=== PATIENT | female | born 1965 | race Caucasian/White ===

== ENCOUNTER 2017-09-19 13:56 | Emergency (ER) | payer BC ==
--- NOTE | 2017-09-19 14:37 | PHYS DOC ---
Past History Additional Past Medical Histor: right wrist fracture age 12, chronic pain Adult General Chief Complaint Chief Complaint: WRIST PAIN HPI HPI Patient is a 51 year old female who presents with onset prior to arrival right wrist pain pickup truck door pushed against it and she felt a pop no other injury. Denies any numbness tingling or weakness. Movement makes it worse. Moderate pain. Review of Systems Review of Systems Constitutional: Denies fever or chills [] Eyes: Denies change in visual acuity, redness, or eye pain [] HENT: Denies nasal congestion or sore throat [] Respiratory: Denies cough or shortness of breath [] Cardiovascular: No additional information not addressed in HPI [] GI: Denies abdominal pain, nausea, vomiting, bloody stools or diarrhea [] : Denies dysuria or hematuria [] Musculoskeletal: Denies back pain or joint pain [] Integument: Denies rash or skin lesions [] Neurologic: Denies headache, focal weakness or sensory changes [] Endocrine: Denies polyuria or polydipsia [] All other systems were reviewed and found to be within normal limits, except as documented in this note. Allergies Allergies Allergies Coded Allergies Type Severity Reaction Last Updated Verified No Known Drug Allergies 09/19/17 No Physical Exam Physical Exam Constitutional: Well developed, well nourished, no acute distress, non-toxic appearance. [] HENT: Normocephalic, atraumatic, bilateral external ears normal, oropharynx moist, no oral exudates, nose normal. [] Eyes: PERRLA, EOMI, conjunctiva normal, no discharge. [] Neck: Normal range of motion, no tenderness, supple, no stridor. [] Cardiovascular:Heart rate regular rhythm, no murmur [] Lungs & Thorax: Bilateral breath sounds clear to auscultation [] Abdomen: Bowel sounds normal, soft, no tenderness, no masses, no pulsatile masses. [] Skin: Warm, dry, no erythema, no rash. [] Back: No tenderness, no CVA tenderness. [] Extremities: Examination of right wrist and hand no obvious swelling bruising; negative snuffbox tenderness there is tenderness to the dorsum and volar aspect of the wrist in the middle; tendon functions intact with flexion and extension of the wrist and fingers. Pulses pulses in the wrist. No sensory deficits. No deformity seen Neurologic: Alert and oriented X 3, normal motor function, normal sensory function, no focal deficits noted. [] Psychologic: Affect normal, judgement normal, mood normal. [] EKG EKG [] Radiology/Procedures Radiology/Procedures Right wrist x-ray[] no acute fracture dislocation my review of images in interpretation. Course & Med Decision Making Course & Med Decision Making Pertinent Labs and Imaging studies reviewed. (See chart for details) X-rays negative plan to put in a Velcro cock-up splint and recommend supportive care and Tylenol or Motrin ibuprofen[] Dragon Disclaimer Dragon Disclaimer This electronic medical record was generated, in whole or in part, using a voice recognition dictation system. Departure Departure: Impression: Primary Impression: Right wrist sprain Disposition: 01 HOME, SELF-CARE Condition: STABLE Referrals: KRISTINA ARGUETA (PCP) Patient Instructions: Wrist Pain, [id number] Additional Instructions: Please take Tylenol or ibuprofen for pain and ice and rest with follow-up with her primary care physician in the next 4-5 days if not improving with rest. LUZMA LAZARO MD Sep 19, 2017 14:37
--- NOTE | 2017-09-19 14:58 | RAD ---
Right wrist, 3 views, 09/19/2017: History: Wrist pain after a fall No acute fracture or dislocation is identified. There is an old nonunited ulnar styloid fracture. There is minimal spurring at the first CMC joint. A small sclerotic focus in the scaphoid bone is compatible with a bone island. There is mild soft tissue swelling. IMPRESSION: No acute bony abnormality is detected.
[2017-09-19 15:05] VITALS: BP 128/71
[2017-09-19] MEDS ORDERED: ACETAMINOPHEN 500 MG TABLET PO ONE (15:15)
== END 2017-09-19 15:05 | disposition home or self-care (01) ==
LOC: ER 13:56
DX: S63.501A Unspecified sprain of right wrist, initial encounter (principal); G89.29 Other chronic pain; X58.XXXA Exposure to other specified factors, initial encounter; Y93.89 Activity, other specified; Y99.8 Other external cause status; Y92.89 Other specified places as the place of occurrence of the external cause
CPT/HCPCS: 29125; 73110; 99284-25

== ENCOUNTER 2020-08-04 20:13 | Emergency (ER) | payer BC ==
[~2020-08-04] VITALS: Ht 157.5 cm; Wt 56.0 kg
--- NOTE | 2020-08-04 20:17 | PHYS DOC ---
Past History Past Medical History: No Pertinent History Additional Past Medical Histor: right wrist fracture age 12, chronic pain Past Surgical History: Hysterectomy, Tonsillectomy, Other Alcohol Use: Occasionally Drug Use: None General Adult HPI: HPI: ". I was on a motorize hover board.. and fell.. " .. " mess up the Lt. wrist, hit my head.. and tail bone hard..." Patient is a 54 year old female who presents with above hx fall and complaints Lt wrist arm injury in FOOSH type mechanism. Does have obvious swelling of the left wrist. Distal cap refill is equal to right hand. Patient also complained of contusion of tailbone area. Patient has contusion to posterior scalp. No loss of consciousness with fall but states it did just on her. Patient is ambulatory. Patient normally healthy. No recent travel. No specific ill contacts. Review of Systems: Review of Systems: Constitutional: Denies fever or chills Eyes: Denies change in visual acuity HENT: Complains of head injury Respiratory: Denies cough or shortness of breath Cardiovascular: Denies chest pain or edema GI: Denies abdominal pain, nausea, vomiting, bloody stools or diarrhea : Denies dysuria Musculoskeletal: Complains of tailbone and left wrist injury Integument: Denies rash Neurologic: Denies headache, focal weakness or sensory changes Endocrine: Denies polyuria or polydipsia Lymphatic: Denies swollen glands Psychiatric: Denies depression or anxiety Heart Score: Risk Factors: Risk Factors: DM, Current or recent (<one month) smoker, HTN, HLP, family history of CAD, obesity. Risk Scores: Score 0 - 3: 2.5% MACE over next 6 weeks - Discharge Home Score 4 - 6: 20.3% MACE over next 6 weeks - Admit for Clinical Observation Score 7 - 10: 72.7% MACE over next 6 weeks - Early Invasive Strategies Family History: Family History: Noncontributory to presentation Current Medications: Current Meds: See nursing for home meds Allergies: Allergies: Allergies Coded Allergies Type Severity Reaction Last Updated Verified No Known Drug Allergies 09/19/17 No Physical Exam: PE: Constitutional: Moderate acute distress, non-toxic appearance. [] HENT: Normocephalic, contusion to posterior scalp, bilateral external ears normal, oropharynx moist, no oral exudates, nose normal. [] Eyes: PERRLA, EOMI, conjunctiva normal, no discharge. [] Neck: Normal range of motion, mild upper neck paracervical tenderness, supple, no stridor. [] Cardiovascular:Heart rate regular rhythm, no murmur [] Lungs & Thorax: Bilateral breath sounds equal at the apex on auscultation [] Abdomen: Bowel sounds normal, soft, no tenderness, no masses, no pulsatile masses. Complains of contusion of the tailbone, old surgery scars Skin: Warm, dry, no erythema, no rash. [] Back: No tenderness, no CVA tenderness. [] Extremities: Complains of left wrist tenderness and edema.. No other injury, no cyanosis, no clubbing, ROM intact, no edema. [] Neurologic: Alert and oriented X 3, range of motion distally in fingers, limited movement of left wrist due to obvious fracture, no focal deficits noted. [] Psychologic: Affect anxious, judgement normal, mood normal. [] EKG: EKG: [] Radiology/Procedures: Radiology/Procedures: [place] [id number] IMAGING REPORT Signed PATIENT: VICKY BARBOZA ACCOUNT: [id number] : 1965 LOCATION: ER AGE: 54 SEX: F EXAM STATUS: DEP ER ORD. PHYSICIAN: SUNNY UP MD REASON: fall off [employer] PROCEDURE: PELVIS Pelvis single view: Reason for examination: Fell off motorized surfboard. Postop changes seen in the lower lumbar spine and sacrum. No acute fracture is seen in the pelvis or proximal femur. No acute abnormality seen in the sacrum or at the sacroiliac joints. Hip joints are symmetric. IMPRESSION: No acute bony abnormality in the pelvis. Left wrist 3 views: There is a comminuted fracture of the distal radius with intra-articular extension and dorsal displacement. No abnormality seen at the distal ulna. Carpal bones are intact. IMPRESSION: Comminuted fracture of the distal radius with dorsal displacement and intra-articular extension Electronically signed by: Clare Ramsey MD (08/05/2020 1:41 AM) [facility] DICTATED AND SIGNED BY: CLARE RAMSEY MD DATE: 08/05/20 0141 CC: SUNNY UP MD; KRISTINA ARGUETA ~ [][place] [id number] IMAGING REPORT Signed PATIENT: VICKY BARBOZA ACCOUNT: [id number] : 1965 LOCATION: ER AGE: 54 SEX: F EXAM STATUS: REG ER ORD. PHYSICIAN: SUNNY UP MD REASON: fall off moterized surf board PROCEDURE: CT HEAD AND CERVICAL SPINE WO EXAM: CT head and cervical spine without contrast INDICATION: Fell off motorized surfboard COMPARISON: None TECHNIQUE: Axial CT imaging through the head and cervical spine without intravenous contrast. Sagittal and coronal reformats were obtained. One or more of the following individualized dose reduction techniques were utilized for this examination: 1. Automated exposure control 2. Adjustment of the mA and/or kV according to patient size 3. Use of iterative reconstruction technique. FINDINGS: CT head: The ventricles and sulci are within normal limits. Neewll-white matter differentiation is maintained. There is no intracranial hemorrhage, acute infarct, or mass lesion. Basal cisterns are clear. The skull and scalp are intact. The visualized paranasal sinuses and mastoid air cells are clear. The visualized globes and orbits are intact. CT cervical spine: There is no acute fracture. There is 2 mm anterolisthesis of C2 on C3 and C7 on T1. 1 mm anterolisthesis of T1 on T2. There is slight reversal of lordosis. Moderate disc space narrowing at C6-C7. Mild disc space narrowing at the remaining levels. There is uncovertebral joint proliferation at C5-C6 and C6-C7 resulting in mild foraminal narrowing. Mild multilevel facet arthrosis. No canal narrowing. Prevertebral soft tissues is normal. Mild pleural parenchymal scarring in the lung apices. IMPRESSION: 1. No acute intracranial abnormality. 2. No acute osseous abnormality of the cervical spine. 3. Multilevel degenerative disc disease. Electronically signed by: Albert Solares MD (08/05/2020 12:09 AM) [id number] DICTATED AND SIGNED BY: ALBERT SOLARES MD DATE: 08/05/20 0009 CC: SUNNY UP MD; KRISTINA ARGUETA ~ Course & Med Decision Making: Course & Med Decision Making Pertinent Labs and Imaging studies reviewed. (See chart for details) Wear splint. Ice. Elevation. Rest. Tylenol and ibuprofen for pain. For marked pain may take Vicoprofen. Follow-up with primary care. If any neuro changes or concerns return immediately. Distal neurovascular intact after appli cation of splint. Call Orthro. in Am for follow apt. [phone] Impression: 1. Fall off Hover Board 2. Tail bone contusion 3. Head Injury 4. Lt wrist Comminuted Fx [] Dragon Disclaimer: Dragon Disclaimer: This electronic medical record was generated, in whole or in part, using a voice recognition dictation system. Departure Departure: Disposition: 01 HOME/RESIDENCE PRIOR TO ADM Condition: STABLE Referrals: KRISTINA ARGUETA (PCP) Dragon Disclaimer This chart was dictated in whole or in part using Voice Recognition software in a busy, high-work load, and often noisy Emergency Department environment. It may contain unintended and wholly unrecognized errors or omissions. Dragon Disclaimer This chart was dictated in whole or in part using Voice Recognition software in a busy, high-work load, and often noisy Emergency Department environment. It may contain unintended and wholly unrecognized errors or omissions. SUNNY UP MD Aug 04, 2020 20:17
[2020-08-04] MEDS ORDERED: KETOROLAC 60 MG/2 ML VIAL. IM ONE (21:00)
--- NOTE | 2020-08-05 00:13 | RAD ---
EXAM: CT head and cervical spine without contrast INDICATION: Fell off motorized surfboard COMPARISON: None TECHNIQUE: Axial CT imaging through the head and cervical spine without intravenous contrast. Sagittal and coronal reformats were obtained. One or more of the following individualized dose reduction techniques were utilized for this examination: 1. Automated exposure control 2. Adjustment of the mA and/or kV according to patient size 3. Use of iterative reconstruction technique. FINDINGS: CT head: The ventricles and sulci are within normal limits. Newell-white matter differentiation is maintained. There is no intracranial hemorrhage, acute infarct, or mass lesion. Basal cisterns are clear. The skull and scalp are intact. The visualized paranasal sinuses and mastoid air cells are clear. The visualized globes and orbits are intact. CT cervical spine: There is no acute fracture. There is 2 mm anterolisthesis of C2 on C3 and C7 on T1. 1 mm anterolisthesis of T1 on T2. There is slight reversal of lordosis. Moderate disc space narrowing at C6-C7. Mild disc space narrowing at the remaining levels. There is uncovertebral joint proliferation at C5-C6 and C6-C7 resulting in mild foraminal narrowing. Mild multilevel facet arthrosis. No canal narrowing. Prevertebral soft tissues is normal. Mild pleural parenchymal scarring in the lung apices. IMPRESSION: 1. No acute intracranial abnormality. 2. No acute osseous abnormality of the cervical spine. 3. Multilevel degenerative disc disease. Electronically signed by: Noni Solares MD (08/05/2020 12:09 AM) [id number]
[2020-08-05 01:30] VITALS: BP 179/99
--- NOTE | 2020-08-05 01:44 | RAD ---
Pelvis single view: Reason for examination: Fell off motorized surfboard. Postop changes seen in the lower lumbar spine and sacrum. No acute fracture is seen in the pelvis or proximal femur. No acute abnormality seen in the sacrum or at the sacroiliac joints. Hip joints are symmetric. IMPRESSION: No acute bony abnormality in the pelvis. Left wrist 3 views: There is a comminuted fracture of the distal radius with intra-articular extension and dorsal displacement. No abnormality seen at the distal ulna. Carpal bones are intact. IMPRESSION: Comminuted fracture of the distal radius with dorsal displacement and intra-articular extension Electronically signed by: Clare Woodward MD (08/05/2020 1:41 AM) [place]
== END 2020-08-05 01:30 | disposition home or self-care (01) ==
LOC: ER 20:13
DX: S52.502A Unspecified fracture of the lower end of left radius, initial encounter for closed fracture (principal); S30.0XXA Contusion of lower back and pelvis, initial encounter; S00.03XA Contusion of scalp, initial encounter; V00.848A Other accident with standing micro-mobility pedestrian conveyance, initial encounter; Y93.89 Activity, other specified; Y92.89 Other specified places as the place of occurrence of the external cause; Y99.8 Other external cause status
CPT/HCPCS: 29125; 70450; 72125; 72170; 73110; 96372; 99285; J1885